=== PATIENT | male | born 1945 | race Caucasian/White ===

== ENCOUNTER 2017-07-10 17:27 | Emergency (ER) | payer OTHER, BC ==
--- NOTE | 2017-07-10 17:46 | PDOC ---
History of Present Illness - General Chief Complaint: Diarrhea Stated Complaint: BACK PAIN,DIARRHEA Time Seen by Provider: 07/10/17 17:36 Past History - Past Medical History Allergies/Adverse Reactions: Allergies Allergy/AdvReac Type Severity Reaction Status Date / Time No Known Allergies Allergy Verified 07/10/17 17:34 Home Medications: Ambulatory Orders Atorvastatin Ca [Lipitor -] 0 mg PO HS 12/09/14 Canagliflozin [Invokana] 0 mg PO DAILY 12/09/14 Liraglutide [Victoza -] 1.2 mg SQ DAILY@0700 12/09/14 Metformin Xr [Glucophage *Xr* -] 1,000 mg PO BID 12/09/14 Sitagliptin Phosphate [Januvia] 50 mg PO BID 12/09/14 Fenofibrate 07/10/17 Tamsulosin HCl [Flomax] 0.4 mg PO DAILY 07/10/17 Cardiac Disorders: Yes Diabetes: Yes Hypercholesterolemia: Yes - Suicide/Smoking/Psychosocial Hx Smoking History: Never smoked Hx Alcohol Use: Yes Substance Use Type: Alcohol
--- NOTE | 2017-07-10 17:53 | PDOC ---
History of Present Illness - General History Source: Patient Exam Limitations: No Limitations - History of Present Illness Initial Comments: 07/10/17 18:36 The patient is a 72 year old male, with a significant past medical history of diabetes, who presents to the emergency department with, lower back and bilateral side pain, and diarrhea. The patient reports that his orthopedist Dr. Bowen wanted him to come to the ER because he believed his stomach looked distended. The patient describes his lower back and bilateral side pain to worsen when sitting and feel better when he stands. He describes his pain as a dull, soreness which wax and wanes and began one week prior. He reports the pain to be focused within his LQ when he eats. He reports his pain to have begun after he lifted his leg to clip his toe nails. The patient reports intermittent, watery, nonbloody diarrhea for the past month. The patient reports to eat a lot of ice cream which he has been trying to replace with yogurt. He denies any recent fevers, chills, headache or dizziness. He denies any recent nausea, vomit, or constipation. He denies any recent chest pain or shortness of breath. He denies any recent dysuria, frequency, urgency or hematuria. Allergies: NKA Past surgical history: None reported. Social History: Nonsmoker. Denies EtOH use and recreational drug use. Familial History: Maternal- Diabetes, CVA, Breast Cancer Paternal- Cancer <Winnie Barr - Last Filed: 07/10/17 18:36> <Srinivas Grider - Last Filed: 07/11/17 08:05> - General Chief Complaint: Diarrhea Stated Complaint: BACK PAIN,DIARRHEA Time Seen by Provider: 07/10/17 17:36 Past History <Winnie Barr - Last Filed: 07/10/17 18:36> - Past Medical History Cardiac Disorders: Yes Diabetes: Yes Hypercholesterolemia: Yes - Suicide/Smoking/Psychosocial Hx Smoking History: Never smoked Hx Alcohol Use: Yes Substance Use Type: Alcohol <Srinivas Grider - Last Filed: 07/11/17 08:05> - Past Medical History Allergies/Adverse Reactions: Allergies Allergy/AdvReac Type Severity Reaction Status Date / Time No Known Allergies Allergy Verified 07/10/17 17:34 Home Medications: Ambulatory Orders Atorvastatin Ca [Lipitor] 0 mg PO HS 12/09/14 Canagliflozin [Invokana] 0 mg PO DAILY 12/09/14 Liraglutide [Victoza -] 1.2 mg SQ DAILY@0700 12/09/14 Metformin Xr [Glucophage Xr -] 1,000 mg PO BID 12/09/14 Sitagliptin Phosphate [Januvia] 50 mg PO BID 12/09/14 Cyclobenzaprine HCl [Flexeril] 10 mg PO TID #15 tablet 07/10/17 Fenofibrate 07/10/17 Tamsulosin HCl [Flomax] 0.4 mg PO DAILY 07/10/17 Review of Systems - Review of Systems Able to Perform ROS?: Yes Comments:: 07/10/17 18:36 CONSTITUTIONAL: Absent: fever, no chills, no fatigue EYES: Absent: visual changes ENT: Absent: ear pain, no sore throat CARDIOVASCULAR: Absent: chest pain, no palpitations RESPIRATORY: Absent: cough, no SOB GI: Present: +Diarrhea. Absent: no nausea, no vomiting, no constipation GENITOURINARY: Absent: dysuria, no frequency, no hematuria MUSKULOSKELETAL: Present: +Back pain. +Flank pain. SKIN: Absent: rash NEURO: Absent: headache All Other Systems: Reviewed and Negative <Winnie Barr - Last Filed: 07/10/17 18:36> *Physical Exam - Vital Signs Last Vital Signs Temp Pulse Resp BP Pulse Ox 97.8 F 93 H 20 147/76 96 07/10/17 17:28 07/10/17 17:28 07/10/17 17:28 07/10/17 17:28 07/10/17 17:28 <Winnie Barr - Last Filed: 07/10/17 18:36> Medical Decision Making - Medical Decision Making 07/10/17 18:30 Injury to low back approximately one week ago while lifting his leg to trim his toenails. Pain across the sacral area bilaterally without radiation to the legs. Gait is normal. Had LS spine x-ray today while seeing Dr. Bowen which was negative. Percocet was prescribed, but he has not yet obtained the prescription. Patient spends most of his day sitting in a chair. Physical exam shows some straightening of the normal lumbar lordosis and paravertebral spasm. There is no deformity point tenderness or inflammation of the lumbosacral spine. Straight leg raising is negative. No distal sensory or motor deficits. Gait is stable and unimpaired. Moderate truncal obesity is present but the abdomen is soft nontender without organomegaly. Bowel sounds are normal. No CVAT 07/11/17 08:03 Urinalysis is clear. Fully ambulatory and in no significant pain or other distress. To use Tylenol and Flexeril, avoid sitting, and Percocet for severe pain or breaks 2. To follow -up with Dr. Bowen. <Srinivas Grider - Last Filed: 07/11/17 08:05> *DC/Admit/Observation/Transfer - Attestations Scribe Attestion: 07/10/17 18:38 Documentation prepared by Winnie Barr, acting as medical secretary teacher for Srinivas Moreira MD. <Winnie Barr - Last Filed: 07/10/17 18:36> - Discharge Dispostion Admit: No <Srinivas Grider - Last Filed: 07/11/17 08:05> Diagnosis at time of Disposition: Low back strain Qualifiers: Encounter type: initial encounter Qualified Code(s): S39.012A - Strain of muscle, fascia and tendon of lower back, initial encounter - Discharge Dispostion Disposition: HOME Condition at time of disposition: Stable - Prescriptions Prescriptions: Cyclobenzaprine HCl [Flexeril] 10 mg PO TID #15 tablet - Referrals Referrals: Michael Bowen MD [Staff Physician] - 1 week - Patient Instructions Printed Discharge Instructions: DI for Back Strain or Sprain Additional Instructions: Rest, heat, avoid sitting. Take Tylenol and muscle relaxant as scheduled. Use Percocet, which is a narcotic, sparingly and only if pain is severe and intractable. Follow-up with Dr. Bowen in one week, sooner if the pain worsens or if other symptoms develop.
[2017-07-10 18:00] VITALS: BP 147/76; PULSE 93; TEMP 97.8; BMI 25.8
[2017-07-10 18:45] LABS: URINE APPEARANCE Clear; URINE BILIRUBIN Negative (NEGATIVE); URINE BLOOD Negative (NEGATIVE); URINE COLOR YELLOW; URINE GLUCOSE (UA) 2+ (NEGATIVE); URINE KETONE Negative (NEGATIVE); URINE NITRITE Negative (NEGATIVE); URINE PROTEIN Negative (NEGATIVE)
== END 2017-07-10 18:55 | disposition home or self-care (01) ==
LOC: FER 17:27
DX: S39.012A Strain of muscle, fascia and tendon of lower back, initial encounter (principal); X58.XXXA Exposure to other specified factors, initial encounter; Y93.89 Activity, other specified; Y92.9 Unspecified place or not applicable; E11.9 Type 2 diabetes mellitus without complications
CPT/HCPCS: 81003; 99282-25

== ENCOUNTER 2018-08-13 13:34 | Emergency (ER) | payer OTHER, BC ==
[2018-08-13 13:51] VITALS: BP 129/81; PULSE 81; TEMP 98.5; BMI 25.8
--- NOTE | 2018-08-13 14:01 | PDOC ---
History of Present Illness - General Chief Complaint: Pain Stated Complaint: LEFT SHOULDER PAIN DOWN ARM Time Seen by Provider: 08/13/18 13:42 - History of Present Illness Initial Comments: 08/13/18 15:11 Chief complaint: Pain and tingling left arm History of present illness: Patient has a history of cervical arthritis, since yesterday he has had increasing pain and stiffness of the neck accompanied by pain in the right arm with numbness and tingling along the C6 distribution. There is no acute injury. Review of systems: Denies chest pain, shortness of breath, abdominal pain, nausea, vomiting, diarrhea, visual or focal neurologic symptoms other than those discussed above, unsteadiness of gait. Remainder systems reviewed and negative Past medical history: [id number] diabetes. No cardiac disease. No high blood pressure. Nonsmoker. No alcohol. Social/family history as above. Otherwise negative Physical exam: Alert and oriented well-developed well-nourished no acute distress cheerful and cooperative. Afebrile, vital signs normal PERRLA, fundi benign, ENT clear Neck supple without bruit masses or nodes. There is however, mild pain and stiffness with rotation, flexion, and extension, and aggravation of left arm pain and tingling with certain neck movements. Chest clear CV regular without murmur rub or gallop gallop Abdomen benign Neurological C2 to 12 intact. No demonstrable focal or sensory deficits. Strength full and symmetric. Gait stable and unimpaired Impression: Exacerbation of chronic cervical arthritis, with radiculopathy. Plan: Rest, anti-inflammatory, heat, consider physical therapy. Follow-up orthopedist. Fully ambulatory and in no significant distress upon discharge to follow-up as directed Past History - Past Medical History Allergies/Adverse Reactions: Allergies Allergy/AdvReac Type Severity Reaction Status Date / Time No Known Allergies Allergy Verified 08/13/18 13:36 Home Medications: Ambulatory Orders Atorvastatin Ca [Lipitor] 10 mg PO HS 12/09/14 Canagliflozin [Invokana] 100 mg PO DAILY 12/09/14 Liraglutide [Victoza -] 1.8 mg SQ DAILY@0700 12/09/14 Fenofibrate DAILY 07/10/17 Tamsulosin HCl [Flomax] 0.4 mg PO DAILY 07/10/17 Sitagliptin Phos/Metformin HCl [Janumet 50-1,000 mg Tablet] 1 tab PO BID Cardiac Disorders: Yes COPD: No Diabetes: Yes Disorders: Yes Hypercholesterolemia: Yes Other medical history: ARTHRITIS - Suicide/Smoking/Psychosocial Hx Smoking History: Never smoked Have you smoked in the past 12 months: No Hx Alcohol Use: Yes (SOCIAL) Drug/Substance Use Hx: No Substance Use Type: Alcohol *Physical Exam - Vital Signs Last Vital Signs Temp Pulse Resp BP Pulse Ox 98.5 F 81 16 129/81 97 08/13/18 13:35 08/13/18 13:35 08/13/18 13:35 08/13/18 13:35 08/13/18 13:35 Moderate Sedation - Procedure Monitoring Vital Signs: Procedure Monitoring Vital Signs Temperature 98.5 F 08/13/18 13:35 Pulse Rate 81 08/13/18 13:35 Respiratory Rate 16 08/13/18 13:35 Blood Pressure 129/81 08/13/18 13:35 O2 Sat by Pulse Oximetry (%) 97 08/13/18 13:35 *DC/Admit/Observation/Transfer Diagnosis at time of Disposition: Cervical radiculopathy at C6 - Discharge Dispostion Disposition: HOME Condition at time of disposition: Stable Decision to Admit order: No - Referrals Referrals: Vahe Haywood [Primary Care Provider] - 1 week - Patient Instructions Printed Discharge Instructions: DI for Cervical Muscle Strain Additional Instructions: Return to ER immediately if you develop any chest pain, nausea, perspiring, shortness of breath, lightheadedness, excessive fatigue. Otherwise follow-up with primary physician as scheduled. Use heat, gentle massage on the neck. Tylenol, ibuprofen, or naproxen symptomatic relief if needed. Consider physical therapy if symptoms persist. - Post Discharge Activity
== END 2018-08-13 14:17 | disposition home or self-care (01) ==
LOC: FER 13:34
DX: M54.12 Radiculopathy, cervical region (principal); E78.00 Pure hypercholesterolemia, unspecified; E11.9 Type 2 diabetes mellitus without complications
CPT/HCPCS: 99282-25

== ENCOUNTER 2019-06-02 15:07 | Emergency (ER) | payer OTHER, BC ==
[2019-06-02 15:21] VITALS: BP 143/81; PULSE 72; TEMP 97.9; BMI 27.3
--- NOTE | 2019-06-02 15:25 | PDOC ---
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 Denies LOC, dizziness, changes to vision/hearing, headache. Denies pro-dromal dizziness or syncope. Has chronic neck/shoulder/ lower back pain with R-sided sciatica 2/2 degenerative changes to the lumbar and cervical spine that is managed with Advil and physical therapy, and this pain felt worse after the fall. Denies new pain in extremities distinct from chronic pain. Afterwards got up, walked to car, drove to orthopedic surgeon at [facility], where he noticed he was bleeding behind his head, and was referred to ED. Not on anticoagulation, no spinal surgeries, only medication taken for chronic pain was Advil. Denies any cardiac or pulmonary history, denies urinary/fecal retention/incontinence. Past History - Past Medical History Allergies/Adverse Reactions: Allergies Allergy/AdvReac Type Severity Reaction Status Date / Time No Known Allergies Allergy Verified 06/02/19 15:07 Home Medications: Ambulatory Orders Atorvastatin Ca [Lipitor] 10 mg PO HS 12/09/14 Canagliflozin [Invokana] 100 mg PO DAILY 12/09/14 Liraglutide [Victoza -] 1.8 mg SQ DAILY@0700 12/09/14 Fenofibrate DAILY 07/10/17 Tamsulosin HCl [Flomax] 0.4 mg PO DAILY 07/10/17 Sitagliptin Phos/Metformin HCl [Janumet 50-1,000 mg Tablet] 1 tab PO BID Cyclobenzaprine HCl [Flexeril -] 10 mg PO HS PRN #7 tablet 06/02/19 Ibuprofen [Motrin -] 600 mg PO QID PRN #28 tablet 06/02/19 Lidocaine 5% Patch [Lidoderm -] 1 patch TP DAILY #7 patch 06/02/19 Cardiac Disorders: Yes COPD: No Diabetes: Yes Disorders: Yes Hypercholesterolemia: Yes - Psycho Social/Smoking Cessation Hx Smoking History: Never smoked Have you smoked in the past 12 months: No Hx Alcohol Use: Yes (socially) Drug/Substance Use Hx: No Substance Use Type: Alcohol Review of Systems - Review of Systems Able to Perform ROS?: Yes Constitutional: No: Symptoms Reported HEENTM: No: Eye Pain, Blurred Vision, Tinnitus, Mouth Pain, Dental Problems, Difficulty Swallowing Respiratory: No: Symptoms reported Cardiac (ROS): No: Chest Pain, Edema, Lightheadedness, Syncope ABD/GI: No: Abdominal Distended, Constipated, Diarrhea, Difficulty Swallowing, Nausea, Vomiting : No: Symptoms Reported Musculoskeletal: Yes: Back Pain, Joint Pain, Muscle Pain, Neck Pain. No: Muscle Weakness Integumentary: Yes: Lesions Neurological: No: Headache, Numbness, Weakness, Unsteady Gait, Ataxia, Dizziness Endocrine: No: Symptoms Reported Hematologic/Lymphatic: No: Symptoms Reported All Other Systems: Reviewed and Negative *Physical Exam - Vital Signs Last Vital Signs Temp Pulse Resp BP Pulse Ox 97.9 F 72 17 143/81 97 06/02/19 15:07 06/02/19 15:07 06/02/19 15:07 06/02/19 15:07 06/02/19 15:07 - Physical Exam General Appearance: Yes: Nourished, Appropriately Dressed, Other (well- appearing male sitting in chair, alert/oriented x4, in no acute distress). No: Apparent Distress HEENT: positive: EOMI, SMITHA, Normal Voice, Symmetrical, Hearing Grossly Normal. negative: Normal ENT Inspection (hematoma evident to back of head, ~2in in diameter with 1cm superficial laceration at center, no active bleeding, mildly tender to palpation), Scleral Icterus (R), Scleral Icterus (L) Neck: positive: Tender (posterior muscular tenderness to palpation to lateral sides of neck), Trachea midline, Normal Thyroid, Rigid, Supple. negative: Decreased range of motion, Lymphadenopathy (R), Lymphadenopathy (L), Tender lateral, Tender midline Respiratory/Chest: positive: Lungs Clear, Normal Breath Sounds, Respiratory Distress. negative: Chest Tender, Crackles, Rales, Rhonchi, Stridor, Wheezing Cardiovascular: positive: Regular Rhythm, Regular Rate. negative: Murmur Gastrointestinal/Abdominal: positive: Normal Bowel Sounds, Flat, Soft. negative : Tender, Organomegaly, Pulsatile Mass, Guarding, Rebound Musculoskeletal: positive: Normal Inspection, Vertebral Tenderness (lower thoracic to lumbar spinal tenderness, no step-offs or deformities). negative: CVA Tenderness Extremity: positive: Normal Capillary Refill, Normal Inspection, Normal Range of Motion. negative: Tender, Swelling, Calf Tenderness Integumentary: positive: Normal Color, Dry, Warm Neurologic: positive: adoption worker II-XII NML intact, Fully Oriented, Alert, Normal Mood/ Affect, Normal Response, Motor Strength 5/5, Other (no cranial nerve deficits. sensation intact to LT to all exremities. 5/5 motor strength all groups. observed standing and walking with some difficulty 2/2 pain. full ROM to all limb joints, elicited some pain with passive rotation at the shoulder.). negative: Numbness Procedures - Laceration/Wound Repair Posterior Head Wound Length: to 2.5 cm Wound Explored: clean Wound's Depth, Shape: superficial Irrigated w/ Saline: Yes Betadine Prep: No Wound Debrided: minimal Wound Repaired With: [place] (one stable) Sterile Dressing Applied: Yes Medical Decision Making - Medical Decision Making 06/02/19 15:23 Ramesh Hughes is a 74M with PMH chronic neck/lumbar spinal pain, NIDDM, HLD presenting with a mechanical fall on the ice. Presentation concerning for intracranial bleed, cervical spine fracture, lumbar spine fracture. Patient has no new neurological deficits or weakness, not on AC, but has increased pain in the same regions he has chronic pain. Per [place] rules patient cannot be ruled out for c-spine injury due to age, and has shoulder and neck tenderness. Getting CT head, C-spine, T-spine, L-spine. Giving 30mg IM Toradol for pain after head bleed ruled out by CT. Placed 1 staple in 1cm vertical laceration to scalp posteriorly. CT head shows no acute intracranial pathology. 06/02/19 17:23 CT spine show no acute fractures. Patient advised that he has no spinal fractures or evidence of ICH. Patient stable to be discharged home with ortho f/u and PMD f/u. Advised to return to ED in 7 days for staple removal, and warned of signs of infection. Prescriptions for lidocaine patches, Flexeril, and Motrin given. Instructed to only use Flexeril at night as needed, and to use one patch q12 hours. Patient agrees with plan and verbalizes understanding. Discharge - Discharge Information Problems reviewed: Yes Clinical Impression/Diagnosis: Traumatic hematoma of head Qualifiers: Encounter type: initial encounter Qualified Code(s): S00.93XA - Contusion of unspecified part of head, initial encounter Condition: Stable - Additional Discharge Information Prescriptions: Cyclobenzaprine HCl [Flexeril -] 10 mg PO HS PRN #7 tablet PRN Reason: Pain Ibuprofen [Motrin -] 600 mg PO QID PRN #28 tablet PRN Reason: Moderate Pain Lidocaine 5% Patch [Lidoderm -] 1 patch TP DAILY #7 patch - Follow up/Referral Referrals: Vahe Haywood [Primary Care Provider] - - Patient Discharge Instructions Patient Printed Discharge Instructions: DI for Laceration Repair Additional Instructions: Today you were evaluated for an injury to your head. We got CT scans of your head and spine and do not see any evidence of bleeding or broken spinal bones. we gave you a medication called Toradol for your pain. We repaired the cut on your head with a staple and gave you a tetanus shot to prevent infection. If the wound on your head shows evidence of pus or blood, or begins to hurt more , this is a sign of infection and you need to return to the emergency room to be evaluated. Please return in the next 7 days for removal of the staple. If you experience headache, sensitivity to light or sound, dizziness, or forgetfulness, you are experiencing signs of a concussion. If so, these symptoms will resolve on their own in the next week; if not, please return to the emergency room. We have given you a prescription for Motrin, lidocaine patches, and a muscle relaxant called Flexeril. Please take them as needed for pain. Do not drive after taking Flexeril, as it will make you feel drowsy, please take it at night as needed. Please see your primary doctor in the next 3 days for further car, and your orthopedic and business management specialist as scheduled. If you experience nausea, vomiting , become unable to walk or have extreme headache, please return to the emergency room. - Post Discharge Activity
[2019-06-02] MEDS ORDERED: KETOROLAC TROMETHAMINE 30 MG/1 ML VIAL IM ONE ×2 (15:53→17:51)
--- NOTE | 2019-06-02 15:54 | PDOC ---
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 he fell backwards, hitting his head against the ground. no LOC. +scalp swelling and bleeding, +mid lower back pain, h/o chronic back pain and degenerative disc disease. no headache, dizziness, cp or sob, ap, weakness/paresthesias, visual or hearing changes. no other trauma to body 06/02/19 16:01 - Physicial Exam PE: 06/02/19 15:53 physical exam General: NAD, well appearing, GCS 15 HEENT: occiput with moderately sized scalp swelling/hematoma, small 0.5cm linear laceration, +bleeding. EOMI,PERRL, dentition intact. Neck No midline c spine tenderness Chest: no chest wall tenderness Resp: clear lungs, no respiratory distress CVS: RRR, no murmur. Abdomen: soft, no tenderness, nondistended Vascular: 2+ DP pulses symmetric and equal. Back: +mid lower thoracic and lumbar TTP, no stepoffs, FROM MSK: soft compartments, Cap refill <2 sec. Proximal and distal strength 5/5, millinery copyist strength 5/5 - equal and symmetric. Plantar flexion and dorsiflexion 5/5. FROM. Sensation grossly intact to light touch. Neuro: alert, no focal neurologic deficits, gait stable, speech clear. Skin: color normal color, warm and well perfused. Cap refill <2 sec. +scalp laceration. 06/02/19 16:02 06/02/19 18:15 - Medical Decision Making 06/02/19 15:54 Vital Signs Temp Pulse Resp BP Pulse Ox 97.9 F 72 17 143/81 97 06/02/19 15:07 06/02/19 15:07 06/02/19 15:07 06/02/19 15:07 06/02/19 15:07 Trauma ddx: ICH, SDH/ EDH, C spine injury/strain, extremity sprain/fracture, pelvis fracture. MSK contusion, msk spasms. Rib fractures. Clinically doubt Intra abdominal and thoracic injuries/bleed, compression fx, back contusion/ strain CT head, c spine and thoracic/ lumbar spine neg for acute abnormalities/bleed, fractures. analgesia here, toradol and lido patch laceration repair of occipital scalp hematoma/laceration with single stable, bleeding controlled, ice to area to reduce welling neuro intact, no prodromal sx. asymptomatic here. back pain controlled with analgesia. rx flexeril prn for muscle spasms. lidopatch prn myofascial pain. adequate rest, head injury and hematoma precautions advised, ice area staple in place, removal in 7 days. Pt to be discharged in stable condition. Patient made aware of clinical impression, treatment recommendations and disposition plan, return precautions discussed (including but not limited to new or persistent/worsening symptoms, pain, fevers, or signs of infection, chest pain, respiratory distress, inability to tolerate oral intake, dehydration, syncope, or neurologic changes) . Follow up with PMD as recommended, follow up information provided, take medications as instructed for duration of time. continue with supportive care, avoid triggers and precipitants. All questions answered to patient's satisfaction and expressed understanding and comfort with this. At the time of discharge, the patient is alert, clinically improved, tolerating po and verbalizes understanding of instructions, satisfied with the care received and felt comfortable with the plan. Patient does not suffer from an acute life- threatening medical condition at this time and is safe for outpatient follow- up. 06/02/19 16:04 06/02/19 18:08 06/02/19 18:14
[2019-06-02] MEDS ORDERED: DIPHTH,PERTUSS(ACELL),TET 0.5 ML DISP.SYRIN IM ONE ×2 (16:00→16:50)
[2019-06-02] MEDS ORDERED: ACETAMINOPHEN 325 MG TABLET (FP) PO ONE (16:49)
[2019-06-02] MEDS ORDERED: ACETAMINOPHEN 325 MG TABLET (FP) ONE (16:50)
[2019-06-02] MEDS ORDERED: KETOROLAC TROMETHAMINE 30 MG/1 ML VIAL ONE (17:51)
== END 2019-06-02 18:25 | disposition home or self-care (01) ==
LOC: FER 15:07
PROC: 3E0234Z Introduction of Serum, Toxoid and Vaccine into Muscle, Percutaneous Approach (ICD-10-PCS; principal; 2019-06-02)
PROC: 3E0233Z Introduction of Anti-inflammatory into Muscle, Percutaneous Approach (ICD-10-PCS; 2019-06-02)
PROC: 0HQ0XZZ Repair Scalp Skin, External Approach (ICD-10-PCS; 2019-06-02)
DX: W18.39XA Other fall on same level, initial encounter (principal); Y93.89 Activity, other specified; Y92.410 Unspecified street and highway as the place of occurrence of the external cause; G89.29 Other chronic pain; E11.9 Type 2 diabetes mellitus without complications; N39.9 Disorder of urinary system, unspecified; E78.00 Pure hypercholesterolemia, unspecified; S01.01XA Laceration without foreign body of scalp, initial encounter
CPT/HCPCS: 70450-TC; 72125-TC; 72128-TC; 72131-TC; 90715; 99282-25

== ENCOUNTER 2019-06-09 14:07 | Emergency (ER) | payer OTHER, BC ==
[2019-06-09 14:19] VITALS: BP 134/86; PULSE 90; TEMP 97.9; BMI 27.0
--- NOTE | 2019-06-09 14:25 | PDOC ---
Suture Removal/Wound Check HPI - History of Present Illness Chief Complaint: Suture/Staple Removal(Here) Stated Complaint: STAPLE REMOVER Time Seen by Provider: 06/09/19 14:18 History Source: Yes: Patient Exam Limitations: Yes: No Limitations Treated at: [facility] [place] [facility] Date of Last ED visit: 06/02/19 - Previous ED Treatment Type of procedure performed on last visit: Yes: Laceration Repair (staple) Past History - Past Medical History Allergies/Adverse Reactions: Allergies Allergy/AdvReac Type Severity Reaction Status Date / Time No Known Allergies Allergy Verified 06/02/19 15:07 Home Medications: Ambulatory Orders Atorvastatin Ca [Lipitor] 10 mg PO HS 12/09/14 Canagliflozin [Invokana] 100 mg PO DAILY 12/09/14 Liraglutide [Victoza -] 1.8 mg SQ DAILY@0700 12/09/14 Fenofibrate DAILY 07/10/17 Tamsulosin HCl [Flomax] 0.4 mg PO DAILY 07/10/17 Sitagliptin Phos/Metformin HCl [Janumet 50-1,000 mg Tablet] 1 tab PO BID Cyclobenzaprine HCl [Flexeril -] 10 mg PO HS PRN #7 tablet 06/02/19 Ibuprofen [Motrin -] 600 mg PO QID PRN #28 tablet 06/02/19 Lidocaine 5% Patch [Lidoderm -] 1 patch TP DAILY #7 patch 06/02/19 Cardiac Disorders: Yes COPD: No Diabetes: Yes Disorders: Yes Hypercholesterolemia: Yes - Psycho Social/Smoking Cessation Hx Smoking History: Never smoked Have you smoked in the past 12 months: No Hx Alcohol Use: Yes (socially) Drug/Substance Use Hx: No Substance Use Type: Alcohol *Physical Exam - Vital Signs Last Vital Signs Temp Pulse Resp BP Pulse Ox 97.9 F 90 18 134/86 99 06/09/19 14:08 06/09/19 14:08 06/09/19 14:08 06/09/19 14:08 06/09/19 14:08 Medical Decision Making - Medical Decision Making 06/09/19 14:26 R occipital laceration well-healed with no signs of infection. One staple removed. Will dc for further outpatient follow up. Discharge - Discharge Information Problems reviewed: Yes Clinical Impression/Diagnosis: Suture Removal from skin Condition: Stable - Follow up/Referral Referrals: Vahe Haywood [Primary Care Provider] - - Patient Discharge Instructions Additional Instructions: You were seen for a staple removal. Your laceration looked well-healed with no signs of infection. Follow up with your primary care doctor within one week. Return to the ED if you develop worsening symptoms. - Post Discharge Activity
--- NOTE | 2019-06-09 15:05 | PDOC ---
Attending Attestation - Resident Resident Name: Lakisha Escudero - ED Attending Attestation I have performed the following: I have examined & evaluated the patient, The case was reviewed & discussed with the resident, I agree w/resident's findings & plan, Exceptions are as noted - HPI HPI: 06/09/19 14:55 74-year-old male presents emergency department for staple removal. Patient had a single staple placed to his occiput on June 02 after head injury. Since then he reports he has been feeling well, denies any fevers or chills. He states he cannot see the wound, but feels that it is scabbing over. He denies any headaches, nausea, vomiting. - Physicial Exam PE: 06/09/19 15:05 Agree with resident exam - Medical Decision Making 06/09/19 15:05 74-year-old male presents the emergency department for staple removal. Staple removed without complication. Patient is very well-appearing, no evidence of discharge, erythema or infection to the laceration. He is clinically stable for discharge home. I discussed the physical exam findings, ancillary test results and final diagnoses with the patient. I answered all of the patient's questions. The patient was satisfied with the care received and felt comfortable with the discharge plan and treatment plan. The patient will call their primary care physician within 24 hours to arrange follow-up and will return to the Emergency Department with any new, persistent or worsening symptoms.
== END 2019-06-09 14:33 | disposition home or self-care (01) ==
LOC: FER 14:07
DX: Z48.02 Encounter for removal of sutures (principal)
CPT/HCPCS: 99281-25

== ENCOUNTER 2021-02-09 04:37 | Day surgery (SDC) | payer OTHER, BC ==
[2021-02-08 08:16] VITALS: BMI 26.9
[2021-02-09 10:45] VITALS: TEMP 97.7
[2021-02-09 12:16] VITALS: BP 121/71; PULSE 87
== END 2021-02-09 12:05 | disposition home or self-care (01) ==
LOC: JASU-ENDO 04:37
PROVIDERS: ATTEND Internal Medicine Gastroenterology
PROC: 0DB68ZX Excision of Stomach, Via Natural or Artificial Opening Endoscopic, Diagnostic (ICD-10-PCS; 2021-02-09)
PROC: 0DB38ZX Excision of Lower Esophagus, Via Natural or Artificial Opening Endoscopic, Diagnostic (ICD-10-PCS; principal; 2021-02-09 09:30)
DX: K25.9 Gastric ulcer, unspecified as acute or chronic, without hemorrhage or perforation (principal); K29.50 Unspecified chronic gastritis without bleeding; K21.00 Gastro-esophageal reflux disease with esophagitis, without bleeding; K44.9 Diaphragmatic hernia without obstruction or gangrene; I10 Essential (primary) hypertension; E11.9 Type 2 diabetes mellitus without complications
CPT/HCPCS: 88305-TC; 88342-TC

== ENCOUNTER 2021-03-28 04:53 | Day surgery (SDC) | payer OTHER, BC ==
[2021-03-24 16:03] VITALS: BMI 25.8
[2021-03-28 10:30] VITALS: TEMP 97.1
[2021-03-28 11:50] VITALS: BP 132/74; PULSE 86
== END 2021-03-28 11:39 | disposition home or self-care (01) ==
LOC: JASU-ENDO 04:53
PROVIDERS: ATTEND Internal Medicine Gastroenterology
PROC: 0DBL8ZX Excision of Transverse Colon, Via Natural or Artificial Opening Endoscopic, Diagnostic (ICD-10-PCS; 2021-03-28)
PROC: 0DBP8ZX Excision of Rectum, Via Natural or Artificial Opening Endoscopic, Diagnostic (ICD-10-PCS; 2021-03-28)
PROC: 0DBF8ZX Excision of Right Large Intestine, Via Natural or Artificial Opening Endoscopic, Diagnostic (ICD-10-PCS; principal; 2021-03-28 09:52)
DX: Z12.11 Encounter for screening for malignant neoplasm of colon (principal); Z86.010 Personal history of colon polyps; K62.1 Rectal polyp; D12.3 Benign neoplasm of transverse colon; K64.8 Other hemorrhoids; I10 Essential (primary) hypertension; E11.9 Type 2 diabetes mellitus without complications
CPT/HCPCS: 88305-TC

== ENCOUNTER 2022-07-24 04:44 | Day surgery (SDC) | payer OTHER, BC ==
[2022-07-18 15:31] VITALS: BMI 26.6
[2022-07-24 14:38] VITALS: TEMP 98
[2022-07-24 14:39] VITALS: BP 122/76; PULSE 88; RESP 17
== END 2022-07-24 12:33 | disposition home or self-care (01) ==
LOC: JASU-ENDO 04:44
PROVIDERS: ATTEND Internal Medicine Gastroenterology
PROC: 0DB78ZX Excision of Stomach, Pylorus, Via Natural or Artificial Opening Endoscopic, Diagnostic (ICD-10-PCS; 2022-07-24)
PROC: 0DB68ZX Excision of Stomach, Via Natural or Artificial Opening Endoscopic, Diagnostic (ICD-10-PCS; 2022-07-24)
PROC: 0DB38ZX Excision of Lower Esophagus, Via Natural or Artificial Opening Endoscopic, Diagnostic (ICD-10-PCS; principal; 2022-07-24 10:30)
DX: K29.70 Gastritis, unspecified, without bleeding (principal); K44.9 Diaphragmatic hernia without obstruction or gangrene; K21.00 Gastro-esophageal reflux disease with esophagitis, without bleeding; E11.9 Type 2 diabetes mellitus without complications; Z79.84 Long term (current) use of oral hypoglycemic drugs
CPT/HCPCS: 82962; 88305-TC; 88342-TC

== ENCOUNTER 2023-08-16 12:07 | Emergency (ER) | payer OTHER, BC ==
[2023-08-16 12:14] VITALS: BP 137/60; RESP 17; TEMP 98.2; BMI 25.8
[2023-08-16] MEDS ORDERED: METOPROLOL TARTRATE 25 MG TABLET (FP) ONE (12:42)
[2023-08-16] MEDS: METOPROLOL TARTRATE 25 MG TABLET (FP) PO ONE (12:43)
[2023-08-16 13:22] VITALS: PULSE 106
== END 2023-08-16 13:26 | disposition home or self-care (01) ==
LOC: FER 12:07
DX: K59.00 Constipation, unspecified (principal); R00.0 Tachycardia, unspecified
CPT/HCPCS: 99283-25

== ENCOUNTER 2023-11-21 04:03 | Day surgery (SDC) | payer OTHER, BC ==
[2023-11-18 12:44] VITALS: BMI 25.5
[2023-11-21 09:57] VITALS: TEMP 97.8
[2023-11-21 10:29] VITALS: BP 114/60; PULSE 73; RESP 18
== END 2023-11-21 10:50 | disposition home or self-care (01) ==
LOC: JASU-ENDO 04:03
PROVIDERS: ATTEND Internal Medicine Gastroenterology
PROC: 0DBH8ZX Excision of Cecum, Via Natural or Artificial Opening Endoscopic, Diagnostic (ICD-10-PCS; principal; 2023-11-21 09:15)
DX: Z12.11 Encounter for screening for malignant neoplasm of colon (principal); K63.5 Polyp of colon; K64.8 Other hemorrhoids; Z86.010 Personal history of colon polyps; E11.9 Type 2 diabetes mellitus without complications; Z79.84 Long term (current) use of oral hypoglycemic drugs; Z79.85 Long-term (current) use of injectable non-insulin antidiabetic drugs
CPT/HCPCS: 82962; 88305-TC